=== PATIENT | male | born 1975 | race Hispanic/Latino ===

== ENCOUNTER 2020-11-18 12:02 | Emergency (ER) | payer SELFPAY ==
[~2020-11-18] VITALS: Ht 170.2 cm; Wt 81.6 kg
[2020-11-18] MEDS ORDERED: CLONIDINE HCL 0.1 MG TAB PO NR (12:15)
[2020-11-18] MEDS ORDERED: OXYMETAZOLINE HCL 0.05% NAS 1 SPRAY BTL ONE (12:15)
== END 2020-11-18 13:47 | disposition home or self-care (01) ==
LOC: ER 12:57
DX: R04.0 Epistaxis (principal); I10 Essential (primary) hypertension
CPT/HCPCS: 99283